=== PATIENT | female | born 1945 | race Caucasian/White ===

== ENCOUNTER 2017-01-06 14:36 | Outpatient (CLI) | payer MEDICARE, OTHER ==
--- NOTE | 2017-01-06 18:27 | RAD ---
TWO VIEWS CHEST: HISTORY: Bronchitis. FINDINGS: Stranding in the left lung base suggests atelectasis, although a streaky infiltrate cannot be exclude d. Lungs are otherwise clear. Heart and mediastinum are unremarkable. IMPRESSION: Streaky atelectasis and/or infiltrate in the left lung base. Recommend follow-up given the history o f bronchitis. POS: [facility]
== END 2017-01-06 14:37 | disposition home or self-care (01) ==
LOC: SCSRAD 14:36
PROVIDERS: ATTEND Family Medicine
DX: J40 Bronchitis, not specified as acute or chronic (principal); J98.11 Atelectasis
CPT/HCPCS: 71020

== ENCOUNTER 2017-01-16 10:07 | Outpatient (CLI) | payer OTHER | END 2017-01-16 10:08 | disposition home or self-care (01) | LOC: DTY/OP 10:07 | PROVIDERS: ATTEND Family Medicine | DX: E66.9 Obesity, unspecified (principal) | CPT/HCPCS: 97802 ==

== ENCOUNTER 2017-02-18 14:22 | Outpatient (CLI) | payer MEDICARE, OTHER ==
--- NOTE | 2017-02-18 15:37 | RAD ---
CHEST 2 VIEWS: Date: 02/18/17 HISTORY: Bronchitis. Follow-up. COMPARISON: 01/06/17. FINDINGS: Cardiac silhouette and pulmonary vasculature are unremarkable. Minimal linear scarring at the left ba se is stable. There is no confluent air space consolidation, pneumothorax, or pleural fluid apparent. IMPRESSION: Stable radiographic appearance of the chest. No active cardiopulmonary abnormalities are demonstrated . POS: [facility]
== END 2017-02-18 14:23 | disposition home or self-care (01) ==
LOC: SCSRAD 14:22
PROVIDERS: ATTEND Family Medicine
DX: R93.8 Abnormal findings on diagnostic imaging of other specified body structures (principal)
CPT/HCPCS: 71046

== ENCOUNTER 2017-03-04 05:44 | Inpatient (IN) | payer MEDICARE, OTHER ==
[2017-03-04] MEDS ORDERED: Dexamethasone 10 MG/ML VIAL ONE (06:11)
[2017-03-04] MEDS ORDERED: Magnesium Sulfate 2 GM/NS 0.9% 50 ML BAG ONE (06:11)
[2017-03-04] MEDS ORDERED: Albuterol Sulfate 2.5 mg/0.5 ml Neb ONE (06:11)
[2017-03-04 06:20] LABS: #Eosinphils 0.1 thou/uL (0.0-0.7); #Lymphocytes 0.4 thou/uL (1.20-3.40); #Monocytes 0.4 thou/uL (0.11-0.59); #Neutrophils 7.7 thou/uL (1.40-6.50); %Basophils 0.5 % (0.0-1.0); %Eosinophils 1.5 % (0.0-10.0); %Lymphocytes 4.6 % (21.0-51.0); %Monocytes 4.4 % (0.0-10.0); %Neutrophils 88.9 % (42.0-75.0); Hemoglobin 13.9 g/dL (12.0-16.0); Mean Corpuscular HGB CONC 33.1 g/dL (32.0-36.0); Mean Corpuscular Hemoglobin 28.9 pg (27.0-31.0); Mean Corpuscular Volume 87.6 fl (81.0-99.0); Mean Platelet Volume 6.7 fL (7.4-10.4); Platelet Count 215 thou/uL (130-400); RBC Distribution Width 10.9 % (11.5-14.5); White Blood Cell (WBC) Count 8.7 thou/uL (4.8-10.8)
[2017-03-04 06:31] LABS: INR-International Normal Ratio 1.1; PTT 29.7 SEC (22.9-36.1); Prothrombin Time 14.3 SEC (12.0-14.7)
[2017-03-04 06:32] LABS: D-Dimer Test 0.46 *mcg/mL (0.27-0.43)
[2017-03-04 06:33] LABS: ALT (SGPT) 55 U/L (8-55); AST (SGOT) 34 U/L (5-34); Albumin 4.1 g/dL (3.4-4.8); Alkaline Phosphatase 80 U/L (40-150); Anion Gap 14 mmol/L (10-20); BUN (Urea Nitrogen) 9 mg/dL (9.8-20.1); Bilirubin, Total 0.7 mg/dL (0.2-1.2); CK (CPK) 130 U/L (29-168); Calc. Creatinine Clearance 0 mL/min (70-130); Calcium 8.9 mg/dL (7.8-10.44); Carbon Dioxide 23 mmol/L (23-31); Chloride 104 mmol/L (98-107); Estimated GFR-MDRD 69; Globulin 3.2 g/dL (2.4-3.5); Glucose 250 mg/dL (80-115); Lipase 33 U/L (8-78); Potassium 3.5 mmol/L (3.5-5.1); Protein, Total 7.3 g/dL (6.0-8.3); Sodium 137 mmol/L (136-145)
[2017-03-04 06:35] LABS: CKMB 1.1 ng/mL (0-6.6); Troponin I 0.017 ng/mL (< 0.028)
[2017-03-04] MEDS ORDERED: Oseltamivir 75 MG CAP ONE (06:56)
[2017-03-04 07:40] LABS: Bilirubin Negative (Negative); Blood, Urine Negative (Negative); Clarity Clear (Clear); Glucose, Urine (Dipstick) 500 mg/dL (Negative); Leukocyte Small (Negative); Nitrite Negative (Negative); Protein, Urine (Dipstick) Negative (Neg-Trace); Urobilinogen 0.2 mg/dL (0.2-1.0)
[2017-03-04 07:41] LABS: Specific Gravity, Urine 1.019 (1.002-1.036)
[2017-03-04 07:48] LABS: Bacteria/HPF None Seen HPF (None Seen); RBC/HPF 0-3 HPF (0-3); Squamous Epithelial 0-3 HPF (0-3); WBC/HPF 0-3 HPF (0-3)
--- NOTE | 2017-03-04 08:07 | CT ---
CT ANGIOGRAM OF THE CHEST: Date: 03-04-17 Comparison: None. History: Intermittent episodes of wheezing for the last two months, evaluate for a pulmonary embolism . Technique: Serial axial CT imaging at 2 mm intervals from the thoracic inlet through the upper abdome n with IV contrast. Study is performed using a CT angiogram protocol which includes coronal and sagit librado 3D reformatted imaging. FINDINGS: No lymphadenopathy is noted in the chest. The imaged hepatic parenchyma is diffusely hypodense, evidence of steatosis. There is linear calcification along the lateral aspect of the right lobe of the liver, suggesting tamara cification on the basis of prior insult, which could include prior hemorrhage or prior infection. 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 No pleural, pericardial or mediastinal fluid is noted. There is adequate opacification of the pulmonary arterial vasculature, with no filling defect identif ied within the pulmonary arterial trunk or either main pulmonary artery. No evidence for pulmonary embolism is noted on either side. Tiny left upper lobe nodules are noted, measuring up to 4 mm on Image 16 and 6 mm on Image 17. There is a small nodule in the right upper lobe on Image 17 measuring in the 5 mm range. Tiny right lower l obe nodule on Image 76 measures in the 5 mm range. No acute osseous abnormality is seen. Age indeterminate mild superior endplate fractures are noted at T7 and T8. IMPRESSION: 1. No evidence for pulmonary embolism. 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 3. Subcentimeter bilateral pulmonary nodules. Follow up CT examination in six months is advised. Code T POS: [facility]
--- NOTE | 2017-03-04 08:12 | RAD ---
RADIOGRAPH CHEST 1 VIEW: HISTORY: 71-year-old with dyspnea. FINDINGS: There is hyperinflation of the lungs, consistent with COPD. There is no evidence of air space densit y, pneumothorax, or pulmonary edema. The lateral costophrenic angles are sharp. IMPRESSION: 1) No acute pulmonary findings. 2) Emphysema. cindy POS: [facility]
[2017-03-04 09:29] LABS: Troponin I Less than 0.010 ng/mL (< 0.028)
[2017-03-04 12:27] LABS: Troponin I Less than 0.010 ng/mL (< 0.028)
[2017-03-04 13:28] VITALS: BMI 35.7
[2017-03-04] MEDS ORDERED: Ondansetron ODT 4 MG TAB SL PRN (13:40)
[2017-03-04] MEDS ORDERED: Sodium Chloride 0.9% 1,000 ML IV SCH (13:40)
[2017-03-04] MEDS ORDERED: Ondansetron HCl/PF 4 MG/2 ML Vial IVP PRN ×2 (13:40→18:28)
[2017-03-04] MEDS ORDERED: Iopamidol 370 76% 100 ML VIAL ONE (13:55)
[2017-03-04] MEDS ORDERED: cloNIDine 0.1 MG TAB PO PRN (18:28)
[2017-03-04] MEDS ORDERED: Loratadine 10 MG TAB PO PRN (18:28)
[2017-03-04] MEDS ORDERED: Ondansetron ODT 4 MG TAB PO PRN (18:28)
[2017-03-04] MEDS ORDERED: hydrALAZINE 20 MG/ML VIAL SLOW IVP PRN (18:28)
[2017-03-04] MEDS: Sodium Chloride 0.9% 1,000 ML IV SCH ×2 (18:54→23:30)
[2017-03-04] MEDS: Mometasone/Formoterol 120 PUFF INHALER INH SCH (20:10)
[2017-03-04] MEDS: Famotidine 20 MG TAB PO SCH (20:47)
[2017-03-04] MEDS: Acetaminophen 500 MG TAB PO PRN (20:47)
[2017-03-04] MEDS: Oseltamivir 75 MG CAP PO SCH (20:47)
--- NOTE | 2017-03-04 22:02 | HP ---
DATE OF ADMISSION: 03/04/2017 PRIMARY CARE PROVIDER: Jonh Spencer MD CHIEF COMPLAINT: Cough and shortness of breath. HISTORY OF PRESENT ILLNESS: This is a 71-year-old female who presented to [facility] Emergency Department complaining of increased cough, shortness of breath, and general weakness over the last 48-72 hours. The patient with increased wheezing, worse at night, after apparently her was diagnosed with influenza. The patient states she has had some difficulty with respirato ry issues dating back to 2016, on several rounds of antibiotics and prednisone tapers. The patient states she was also placed on a metered dose inhaler and has had lingering cough since th is time. The patient denies any known chronic lung conditions, chronic tobacco use or exposure, or c hemical exposure. The patient denied any documented fever, but states she had severe shortness of br eath and worsening in the last 24 hours. The patient does state that she took her inhaler as well as recent course of steroids without relief of her symptoms. The patient denied any recent travel hist ory, but does state that several family members have respiratory symptoms similar to her presentation . The patient denied any recent travel history, prolonged sitting, lower extremity edema, or known c oronary disease. In the emergency room, the patient underwent general evaluation including chest radha ging showing no acute infiltrate. The patient received bronchodilator therapy with DuoNeb, as well a s Tamiflu, Levaquin, albuterol sulfate, magnesium sulfate, Decadron, and intravenous fluids. The pat ient was noted with influenza A positive nasal swab prompting respiratory isolation. PAST MEDICAL HISTORY: 1. Seasonal allergies. 2. Question of chronic bronchitis. 3. History of cataracts. PAST SURGICAL HISTORY: 1. Status post bilateral cataract removal. 2. Status post orthopedic surgery of the right knee. 3. Status post open reduction internal fixation of bilateral ankle fractures, 2016. CURRENT MEDICATIONS: Loratadine 5 mg p.o. daily. ALLERGIES: No known drug allergies. FAMILY HISTORY: No inheritable diseases per patient report. SOCIAL HISTORY: The patient is and resides in [place], [place]. No current alcohol, tobacco, or illicit drug use. REVIEW OF SYSTEMS: The following complete review of systems was negative, unless otherwise mentioned in the HPI or below: Constitutional: Weight loss or gain, ability to conduct usual activities. Skin: Rash, itching. Eyes: Double vision, pain. ENT/Mouth: Nose bleeding, neck stiffness, pain, tenderness. Cardiovascular: Palpitations, dyspnea on exertion, orthopnea. Respiratory: Shortness of breath, wheezing, cough, hemoptysis, fever or night sweats. Gastrointestinal: Poor appetite, abdominal pain, heartburn, nausea, vomiting, constipation, or diarr hea. Genitourinary: Urgency, frequency, dysuria, nocturia. Musculoskeletal: Pain, swelling. Neurologic/Psychiatric: Anxiety, depression. Allergy/Immunologic: Skin rash, bleeding tendency. Otherwise negative, except as stated per HPI. PHYSICAL EXAMINATION: VITAL SIGNS ON ADMISSION: Blood pressure 142/72, pulse 109, respiratory rate 16, temperature 97.7 de grees Fahrenheit, O2 saturation 95% on room air. GENERAL APPEARANCE: This is a 71-year-old female, alert and oriented x3, pleasant, convers ant, in no acute distress. HEENT: Pupils are equal, round, and reactive to light and accommodation. Extraocular muscles are in tact. No scleral icterus. No conjunctival injection. Nares patent. OP is clear. Teeth in good re pair. NECK: Supple. No cervical adenopathy. No thyromegaly. No carotid bruits. No JVD appreciated. Ce rvical spine with full active and passive range of motion. CHEST: Diffuse expiratory wheezing with diminished breath sounds bilaterally. CARDIOVASCULAR: S1, S2 without noted murmur. ABDOMEN: Obese, soft, nontender, nondistended. Bowel sounds are positive in all four quadrants. Th ere is no hepatosplenomegaly. No abdominal bruits. No rebound or guarding appreciated. EXTREMITIES: Warm and dry with fair turgor. No clubbing, cyanosis or asymmetric edema appreciated. Pulses palpable distally at the dorsalis pedis, posterior tibial, and popliteal arteries bilaterally . Capillary refill is less than 2 seconds. NEUROLOGIC: Cranial nerves II-XII are grossly intact. No focal or lateralizing signs appreciated. PERTINENT LABORATORY AND X-RAY FINDINGS: Basic metabolic profile within normal limits. Glucose 250, lactic acid level 1.5. LFTs within normal limits. Troponin I negative x3. BNP is 50. Albumin 4.1 , lipase 33. CBC within normal limits. D-dimer is 0.46. PT 14.3, INR 1.1, PTT 29.7. Urinalysis wa s positive for glucose and small leukocyte esterase. Influenza A antigen positive, 03/04/2017. Port able chest x-ray dated 03/04/2017 showed no acute cardiopulmonary process. Chronic changes concernin g for chronic obstructive pulmonary disease noted. CT angiogram of the chest dated 03/04/2017 showed no evidence for pulmonary embolus. Bilateral pulmonary nodules with recommended followup CT imaging in 6 months. EKG dated 03/04/2017 by my interpretation shows sinus tachycardia with heart rates in the 110s. Attenuated R-waves noted in the precordial leads. Normal axis. No acute ST-T wave change s appreciated. ASSESSMENT AND PLAN: 1. Influenza A positive. The patient will be admitted to the telemetry unit. We will continue Tania flu 75 mg p.o. b.i.d. Respiratory isolation. We will continue bronchodilator therapy with DuoNeb q. 4 hours. 2. Question of acute on chronic bronchitis secondary to influenza A positive. Initiate Levaquin 500 mg IV q.24 hours. Continue DuoNeb q.4 hours. Add Solu-Medrol 40 mg IV q.6 hours. Oxygen p.r.n. 3. Hyperglycemia. We will check A1c level in the a.m. No documented history or prior known history of diabetes mellitus. 4. Sinus tachycardia. Suspect secondary to bronchodilator therapy with beta agonist. We will william nue telemetry monitoring. Check TSH level in the a.m. 5. Prophylaxis. Sequential compression devices while in bed. Pepcid 20 mg p.o. b.i.d. Respiratory isolation. 6. Code status is full. Surrogate medical decision maker is patient's spouse.
[2017-03-05 05:34] LABS: Hemoglobin A1c 7.7 % (4.0-6.0)
[2017-03-05 05:42] LABS: Anion Gap 14 mmol/L (10-20); BUN (Urea Nitrogen) 13 mg/dL (9.8-20.1); Calc. Creatinine Clearance 104 mL/min (70-130); Calcium 8.8 mg/dL (7.8-10.44); Carbon Dioxide 18 mmol/L (23-31); Chloride 110 mmol/L (98-107); Estimated GFR-MDRD 75; Glucose 325 mg/dL (80-115); Potassium 3.7 mmol/L (3.5-5.1); Sodium 138 mmol/L (136-145)
[2017-03-05] MEDS: Acetaminophen 500 MG TAB PO PRN ×2 (05:50→22:34)
[2017-03-05] MEDS: Mometasone/Formoterol 120 PUFF INHALER INH SCH ×2 (07:09→19:21)
[2017-03-05 07:38] LABS: Hemoglobin 12.4 g/dL (12.0-16.0); Mean Corpuscular HGB CONC 32.8 g/dL (32.0-36.0); Mean Corpuscular Hemoglobin 30.4 pg (27.0-31.0); Mean Corpuscular Volume 92.7 fl (81.0-99.0); Mean Platelet Volume 7.7 fL (7.4-10.4); Platelet Count 209 thou/uL (130-400); RBC Distribution Width 11.9 % (11.5-14.5); Red Blood Cell (RBC) Count 4.07 mill/uL (4.20-5.40); White Blood Cell (WBC) Count 8.1 thou/uL (4.8-10.8)
[2017-03-05 08:13] LABS: Band 17 % (5-11); Lymphocytes 3 % (21-51); MDiff Complete? YES; Monocytes 2 % (0-10); Neutrophil 78 % (42-75); RBC Morphology Normal
[2017-03-05] MEDS: Sodium Chloride 0.9% 1,000 ML IV SCH ×2 (09:07→14:44)
[2017-03-05] MEDS: Oseltamivir 75 MG CAP PO SCH ×2 (09:08→22:16)
[2017-03-05] MEDS: Famotidine 20 MG TAB PO SCH ×2 (09:08→22:16)
--- NOTE | 2017-03-05 13:33 | PDOC.PN ---
- Subjective Encounter Start Date: 03/05/17 Encounter Start Time: 13:30 Subjective: f/u for acute bronchitis and Influenza A + on Tamiflu and Levaquin. Overall -: feeling better. Less SOB. + dry coughing. No fever or chills. - Objective Resuscitation Status: Resuscitation Status FULL:Full Resuscitation MAR Reviewed: Yes Vital Signs & Weight: Vital Signs (12 hours) Temp Pulse Resp BP Pulse Ox 03/05/17 12:00 97.8 F 115 H 16 143/63 H 95 03/05/17 10:48 110 H 16 03/05/17 09:00 97.9 F 114 H 18 130/61 94 L 03/05/17 07:09 90 16 03/05/17 04:00 97.9 F 115 H 20 137/65 96 03/05/17 02:27 105 H 18 94 L Weight Weight 207 lb 5 oz I&O: 03/04/17 03/05/17 03/06/17 06:59 06:59 06:59 Intake Total 3520 Output Total 2000 Balance 1520 Result Diagrams: 03/05/17 05:12 03/05/17 05:12 Additional Labs: Microbiology 03/04/17 06:30 Nasal swab Influenza Types A,B Direct EIA - Final 03/04/17 06:33 Venous blood - Right Arm Blood Culture - Preliminary Specimen has been received and culture in progress. No Growth to date. 03/04/17 06:19 Venous blood - Left Arm Blood Culture - Preliminary Specimen has been received and culture in progress. No Growth to date. Laboratory Tests 03/05/17 03/05/17 05:12 05:12 Hemoglobin A1c 7.7 H TSH 3rd Generation 0.2578 L EKG Reviewed by me: Yes (Tele - sinus tachycardia in 100's) Phys Exam - Physical Examination Constitutional: NAD HEENT: PERRLA, oral pharynx no lesions Neck: no JVD, supple scattered coarse sounds Respiratory: wheezing present tachycardic Gastrointestinal: soft, non-tender, no distention, positive bowel sounds Musculoskeletal: no edema, pulses present Neurological: normal sensation, moves all 4 limbs Psychiatric: A&O x 3 Skin: normal turgor, cap refill <2 seconds Dx/Plan (1) Influenza A Code(s): J10.1 - FLU DUE TO OTH IDENT INFLUENZA VIRUS W OTH RESP MANIFEST Status: Acute Comment: Continue Tamiflu 75mg BID (2) Acute bronchitis Code(s): J20.9 - ACUTE BRONCHITIS, UNSPECIFIED Status: Acute Comment: Continue Solumedrol, Levaquin and Duonebs (3) Dehydration Code(s): E86.0 - DEHYDRATION Status: Acute Comment: Resolved (4) Sinus tachycardia Code(s): R00.0 - TACHYCARDIA, UNSPECIFIED Status: Acute Comment: Persistent , likely exacerbated by beta-agonist (5) Diabetes mellitus type II, uncontrolled Code(s): E11.65 - TYPE 2 DIABETES MELLITUS WITH HYPERGLYCEMIA Status: Chronic Comment: ADA, recommend aggressive dietary measures, exercise and outpt monitoring, may need medical therapy to augment lifestyle changes - Plan plan discussed w/ family, continue antibiotics, respiratory therapy, out of bed/ ambulate, DVT proph w/SCDs Stable overall -: Continue Tamiflu 75mg BID -: Continue Levaquin 500mg daily -: Decrease Solumedrol 20mg IV q6h -: AM lab: FT4 * Likely home in 24h
[2017-03-05] MEDS: Zolpidem Tartrate 5 MG TAB PO PRN (22:34)
[2017-03-05] MEDS: Benzonatate 100 MG CAP PO PRN (22:37)
[2017-03-06] MEDS: Mometasone/Formoterol 120 PUFF INHALER INH SCH ×2 (08:42→19:00)
[2017-03-06] MEDS: Oseltamivir 75 MG CAP PO SCH ×2 (09:20→21:25)
[2017-03-06] MEDS: Sodium Chloride 0.9% 1,000 ML IV SCH (09:21)
[2017-03-06] MEDS: Famotidine 20 MG TAB PO SCH ×2 (09:21→21:24)
--- NOTE | 2017-03-06 11:58 | PDOC.PN ---
- Subjective Encounter Start Date: 03/06/17 Encounter Start Time: 11:40 Subjective: f/u for Influenza A+ and bronchitis with slow clinical improvement. -: Still feels weak with coughing. No fever. Ambulating in room. - Objective Resuscitation Status: Resuscitation Status FULL:Full Resuscitation MAR Reviewed: Yes Vital Signs & Weight: Vital Signs (12 hours) Temp Pulse Resp BP Pulse Ox 03/06/17 08:42 108 H 16 03/06/17 08:00 96.7 F L 108 H 16 169/77 H 99 03/06/17 07:41 86 16 03/06/17 04:00 98.4 F 101 H 18 138/64 95 03/06/17 02:52 958 H 03/06/17 01:53 101 H 18 94 L 03/06/17 00:00 98.0 F 103 H 20 148/69 H 95 Weight Weight 207 lb 5 oz I&O: 03/05/17 03/06/17 03/07/17 06:59 06:59 06:59 Intake Total 3520 720 240 Output Total 2000 1100 Balance 1520 -380 240 Result Diagrams: 03/05/17 05:12 03/05/17 05:12 EKG Reviewed by me: Yes (Tele - Sinus tach in low 100's) Phys Exam - Physical Examination Constitutional: NAD HEENT: PERRLA, oral pharynx no lesions Neck: no JVD, supple diminished in bases, few scattered coarse sounds tachycardia Gastrointestinal: soft, non-tender, no distention, positive bowel sounds Musculoskeletal: no edema, pulses present Neurological: normal sensation, moves all 4 limbs Psychiatric: A&O x 3 Skin: normal turgor, cap refill <2 seconds Dx/Plan (1) Influenza A Code(s): J10.1 - FLU DUE TO OTH IDENT INFLUENZA VIRUS W OTH RESP MANIFEST Status: Acute Comment: Continue Tamiflu 75mg BID to complete a 5-day course (2) Acute bronchitis Code(s): J20.9 - ACUTE BRONCHITIS, UNSPECIFIED Status: Acute Comment: Continue Solumedrol, Levaquin and Duonebs (3) Dehydration Code(s): E86.0 - DEHYDRATION Status: Acute Comment: Resolved, d/c IVF (4) Sinus tachycardia Code(s): R00.0 - TACHYCARDIA, UNSPECIFIED Status: Acute Comment: Persistent , likely exacerbated by beta-agonist (5) Diabetes mellitus type II, uncontrolled Code(s): E11.65 - TYPE 2 DIABETES MELLITUS WITH HYPERGLYCEMIA Status: Chronic Comment: ADA, recommend aggressive dietary measures, exercise and outpt monitoring, may need medical therapy to augment lifestyle changes - Plan continue antibiotics, respiratory therapy, out of bed/ambulate, DVT proph w/SCDs Stable overall -: Decrease Solumedrol 20mg IV q12h -: Change Levaquin 500mg po daily -: Saline Lock IVF -: OOB/ambulate * Home in am
[2017-03-06] MEDS: Benzonatate 100 MG CAP PO PRN (12:37)
[2017-03-06] MEDS: Zolpidem Tartrate 5 MG TAB PO PRN ×2 (21:25→21:38)
[2017-03-06] MEDS: Acetaminophen 500 MG TAB PO PRN (21:25)
[2017-03-07] MEDS: Benzonatate 100 MG CAP PO PRN (06:36)
[2017-03-07] MEDS: Mometasone/Formoterol 120 PUFF INHALER INH SCH (09:05)
[2017-03-07] MEDS: Famotidine 20 MG TAB PO SCH (10:26)
[2017-03-07] MEDS: Oseltamivir 75 MG CAP PO SCH (10:26)
[2017-03-07] MEDS: Acetaminophen 500 MG TAB PO PRN (10:29)
[2017-03-07 12:38] VITALS: BP 152/86; TEMP 98
--- NOTE | 2017-03-07 16:32 | DIS ---
DATE OF ADMISSION: 03/04/2017 DATE OF DISCHARGE: 03/07/2017 DISCHARGE DIAGNOSES: 1. Influenza A. 2. Acute bronchitis secondarily to #1. 3. Diabetes mellitus type 2, diet managed. 4. Dehydration, resolved. 5. Sinus tachycardia, improved. 6. Elevated blood pressure. CONSULTATIONS: None. PERTINENT LAB AND X-RAY FINDINGS: Hemoglobin A1c 7.7. LFTs within normal limits. Troponin I negati ve x3. BNP 50, TSH 0.26, free T4 0.87. CBC within normal limits. Blood cultures x2 dated 8 showed no growth at 48 hours. Influenza A antigen positive 03/04/2017. Portable chest x-ray dated 03/04/2017 showed no acute cardiopulmonary process. Chronic changes consistent with COPD. CT angio gram of the chest dated 03/04/2017 showed no evidence for pulmonary embolus. Bilateral subcentimeter pulmonary nodules with follow up CT imaging recommended in 6 months. HOSPITAL COURSE: The patient was admitted to the telemetry unit after initially presenting with incr eased cough, congestion, and shortness of breath. The patient underwent extensive evaluation includi ng chest imaging to include plain radiographs and CT imaging showing no acute infiltrates. The patie nt was noted with influenza A positive and treated with Tamiflu, Solu-Medrol, and empiric Levaquin. The patient was slow to clinically improve with supportive measures; however, was titrated off oxygen supplementation, maintaining O2 saturations in the mid 90% range on room air. The patient continues to clinically improve with respiratory symptoms and stabilized by the time of discharge. The patien t was noted with elevated glucose values with hemoglobin A1c of 7.7. Current recommendations are for diet management as well as exercise regimen. The patient may benefit from low dose oral hypoglycemi c after discussion with her primary care provider. The patient was also noted with mild elevated blo od pressures with recommendations for serial monitoring after discharge. Overall, the patient did re main clinically stable since the hospital course and tolerating regular oral intake, ambulating witho ut assistance or difficulty and ready for discharge on 03/07/2017. DISCHARGE MEDICATIONS: 1. Levaquin 500 mg 1 tab p.o. daily x5 days. 2. Loratadine 5 mg p.o. daily. 3. Dulera 200/5 mcg 2 puffs inhaled b.i.d. 4. Tamiflu 75 mg p.o. b.i.d. x2 days. 5. Prednisone 10 mg dose pack. 6. Ambien 5 mg p.o. at bedtime p.r.n. FOLLOWUP: The patient will follow up with primary care provider, Dr. Jonh Spencer within 7 day s of discharge. CONDITION ON DISCHARGE: Stable. ACTIVITY: ad mayo. DIET: ADA and heart healthy. CODE STATUS: FULL. SPECIAL INSTRUCTIONS: Recommend repeat CT imaging of the chest in 6 months. DISPOSITION: Home on 03/07/2017. Total time preparing in coordinating discharge 37 minutes.
== END 2017-03-07 15:30 | disposition home or self-care (01) | DRG 194 ==
LOC: SCSER 05:44 → 2NO 07:15
PROVIDERS: ADMIT Family Medicine; ATTEND Family Medicine
DX: J10.1 Influenza due to other identified influenza virus with other respiratory manifestations (principal); J44.0 Chronic obstructive pulmonary disease with (acute) lower respiratory infection; E11.65 Type 2 diabetes mellitus with hyperglycemia; E86.0 Dehydration; J30.2 Other seasonal allergic rhinitis; J20.9 Acute bronchitis, unspecified; R00.0 Tachycardia, unspecified; R03.0 Elevated blood-pressure reading, without diagnosis of hypertension; R06.03 Acute respiratory distress
CPT/HCPCS: 36415; 71045; 71275; 80048; 80053; 81003; 81015; 82553; 83036; 83605; 83690; 83880; 84439; 84443; 84484; 85007; 85025; 85027; 85379; 85610; 85730; 87040; 93005; 94640; 94664; 96365; 96366; 96367; 96375; A4216; J1100; J1956; J2920; J3475; J7611; J7620

== ENCOUNTER 2018-06-02 12:35 | Outpatient (CLI) | payer MEDICARE, OTHER ==
--- NOTE | 2018-06-02 13:26 | ULT ---
Pelvic ultrasound: Transabdominal exam performed. Endovaginal exam also performed. INDICATIONS: Pelvic pain. Uterus is unremarkable in size and appearance. Endometrial stripe appears normal measuring 2 to 3 mm. Both ovaries are identified and appear unremarkable. Color Doppler with spectral analysis demonstrates blood flow to both ovaries. No evidence of free fluid. IMPRESSION: Unremarkable pelvic ultrasound.
== END 2018-06-02 12:36 | disposition home or self-care (01) ==
LOC: SCSULT 12:35
PROVIDERS: ATTEND Family Medicine
DX: R10.30 Lower abdominal pain, unspecified (principal)
CPT/HCPCS: 76856

== ENCOUNTER 2018-10-21 11:02 | Outpatient (CLI) | payer MEDICARE, OTHER ==
--- NOTE | 2018-10-21 11:26 | MMO ---
Bilateral MAMMO Bilat Screen [facility]. CLINICAL HISTORY: Patient is 72 years old and is seen for screening. The patient has no family history of breast cancer. The patient has no personal history of cancer. VIEWS: The views performed were: bilateral craniocaudal with tomosynthesis and bilateral mediolateral oblique with tomosynthesis. FILMS COMPARED: The present examination has been compared to a prior imaging study performed at [facility] on 05/16/2016. MAMMOGRAM FINDINGS: There are scattered fibroglandular densities. There are vascular calcifications seen in both breasts. There are no suspicious masses, suspicious calcifications, or new areas of architectural distortion. IMPRESSION: A ROUTINE FOLLOW-UP MAMMOGRAM IN 1 YEAR IS RECOMMENDED. THE RESULTS OF THIS EXAM WERE SENT TO THE PATIENT. ACR BI-RADS Category 2 - Benign finding MAMMOGRAPHY NOTE: 1. A negative mammogram report should not delay a biopsy if a dominant of clinically suspicious mass is present. 2. Approximately 10% to 15% of breast cancers are not detected by mammography. 3. Adenosis and dense breasts may obscure an underlying neoplasm. Reported by: DAWN NOE MD Electonically Signed: [id number]
== END 2018-10-21 11:03 | disposition home or self-care (01) ==
LOC: BICMAMMO 11:02
PROVIDERS: ATTEND Family Medicine
DX: Z12.31 Encounter for screening mammogram for malignant neoplasm of breast (principal)
CPT/HCPCS: 77063; 77067

== ENCOUNTER 2020-02-07 10:37 | Outpatient (CLI) | payer MEDICARE, OTHER ==
--- NOTE | 2020-02-07 11:09 | MMO ---
Bilateral MAMMO Bilat Screen [facility]. CLINICAL HISTORY: Patient is 74 years old and is seen for screening. The patient has no family history of breast cancer. The patient has no personal history of cancer. VIEWS: The views performed were: bilateral craniocaudal with tomosynthesis and bilateral mediolateral oblique with tomosynthesis. FILMS COMPARED: The present examination has been compared to prior imaging studies performed at [facility] on 05/16/2016 and 10/21/2018. This study has been interpreted with the assistance of computer-aided detection. MAMMOGRAM FINDINGS: There are scattered fibroglandular densities. Benign calcifications are noted bilaterally. There are no suspicious masses, suspicious calcifications, or new areas of architectural distortion. IMPRESSION: THERE IS NO MAMMOGRAPHIC EVIDENCE OF MALIGNANCY. A ROUTINE FOLLOW-UP MAMMOGRAM IN 1 YEAR IS RECOMMENDED. THE RESULTS OF THIS EXAM WERE SENT TO THE PATIENT. ACR BI-RADS Category 2 - Benign finding MAMMOGRAPHY NOTE: 1. A negative mammogram report should not delay a biopsy if a dominant of clinically suspicious mass is present. 2. Approximately 10% to 15% of breast cancers are not detected by mammography. 3. Adenosis and dense breasts may obscure an underlying neoplasm. Reported by: EDY MISTRY MD Electonically Signed: [id number]
== END 2020-02-07 10:38 | disposition home or self-care (01) ==
LOC: BICMAMMO 10:37
PROVIDERS: ATTEND Family Medicine
DX: Z12.31 Encounter for screening mammogram for malignant neoplasm of breast (principal)
CPT/HCPCS: 77063; 77067

== ENCOUNTER 2020-05-18 09:53 | Outpatient (CLI) | payer MEDICARE | END 2020-05-18 09:54 | disposition home or self-care (01) | LOC: BICMAMMO 09:53 | PROVIDERS: ATTEND Family Medicine | DX: Z13.820 Encounter for screening for osteoporosis (principal); E11.9 Type 2 diabetes mellitus without complications; M85.89 Other specified disorders of bone density and structure, multiple sites | CPT/HCPCS: 77080 ==

== ENCOUNTER 2021-07-24 12:05 | Outpatient (CLI) | payer MEDICARE | END 2021-07-24 12:06 | disposition home or self-care (01) | LOC: DTY/OP 12:05 | PROVIDERS: ATTEND Family Medicine | DX: E11.9 Type 2 diabetes mellitus without complications (principal); Z71.3 Dietary counseling and surveillance | CPT/HCPCS: 97802 ==

== ENCOUNTER 2021-10-31 11:13 | Outpatient (CLI) | payer MEDICARE, OTHER | END 2021-10-31 11:14 | disposition home or self-care (01) | LOC: SCSRAD 11:13 | PROVIDERS: ATTEND Family Medicine | DX: M25.562 Pain in left knee (principal); M17.12 Unilateral primary osteoarthritis, left knee ==

== ENCOUNTER 2021-12-21 13:44 | Outpatient (CLI) | payer MEDICARE, OTHER | END 2021-12-21 13:45 | disposition home or self-care (01) | LOC: BICMAMMO 13:44 | PROVIDERS: ATTEND Family Medicine | DX: Z12.31 Encounter for screening mammogram for malignant neoplasm of breast (principal) | CPT/HCPCS: 77063; 77067 ==

== ENCOUNTER 2022-03-27 11:16 | Outpatient (CLI) | payer MEDICARE, OTHER ==
[2022-03-27 13:12] LABS: Bilirubin Neg (Negative); Blood, Urine Negative (Negative); Clarity Cloudy (Clear); Glucose, Urine (Dipstick) Normal (Negative); Ketone, Urine Negative (Negative); Leukocyte 100 (Negative); Nitrite Positive (Negative); Protein, Urine (Dipstick) Negative (Neg-Trace); Specific Gravity, Urine 1.015 (1.005-1.030); Urobilinogen Normal mg/dL (Less than 2)
[2022-03-27 13:19] LABS: #Eosinphils 0.2 10x3/uL (0.0-0.5); #Monocytes 0.4 10x3/uL (0.0-1.1); #Neutrophils 3.5 10x3/uL (1.5-8.4); %Basophils 0.5 % (0.0-2.0); %Eosinophils 3.1 % (0.0-6.0); %Lymphocytes 34.6 % (18.0-47.0); %Monocytes 6.3 % (0.0-10.0); %Neutrophils 55.2 % (40.0-75.0); Mean Corpuscular HGB CONC 32.8 g/dL (32.0-36.0); Mean Corpuscular Hemoglobin 29.7 pg (27.0-33.0); Mean Corpuscular Volume 90.5 fl (81.6-98.3); Mean Platelet Volume 10.5 fl (7.4-10.4); Platelet Count 268 10x3/uL (150-450); RBC Distribution Width 12.6 % (11.5-14.5); Red Blood Cell (RBC) Count 4.72 10x6/uL (3.90-5.03); White Blood Cell (WBC) Count 6.4 10x3/uL (3.5-10.5)
[2022-03-27 13:20] LABS: Prothrombin Time 10.4 sec (9.5-12.1)
[2022-03-27 13:23] LABS: Anion Gap 13 mmol/L (10-20); BUN (Urea Nitrogen) 10 mg/dL (9.8-20.1); Calc. Creatinine Clearance 0 mL/min (70-130); Calcium 9.6 mg/dL (7.8-10.44); Carbon Dioxide 26 mmol/L (23-31); Chloride 105 mmol/L (98-107); Estimated GFR 71; Glucose 132 mg/dL (83-110); Potassium 4.2 mmol/L (3.5-5.1); Sodium 140 mmol/L (136-145)
== END 2022-03-27 11:17 | disposition home or self-care (01) ==
LOC: LABBT 11:16
PROVIDERS: ATTEND Orthopaedic Surgery
DX: Z01.818 Encounter for other preprocedural examination (principal); M17.12 Unilateral primary osteoarthritis, left knee
CPT/HCPCS: 71046; 80048; 81003; 85025; 85610; 86850; 86900; 86901; 87081; 93005; 93010

== ENCOUNTER 2022-04-01 05:38 | Inpatient (IN) | payer MEDICARE, OTHER ==
[2022-03-27 13:12] LABS: Bilirubin Neg (Negative); Blood, Urine Negative (Negative); Clarity Cloudy (Clear); Glucose, Urine (Dipstick) Normal (Negative); Ketone, Urine Negative (Negative); Leukocyte 100 (Negative); Nitrite Positive (Negative); Protein, Urine (Dipstick) Negative (Neg-Trace); Specific Gravity, Urine 1.015 (1.005-1.030); Urobilinogen Normal mg/dL (Less than 2)
[2022-03-27 13:19] LABS: #Eosinphils 0.2 10x3/uL (0.0-0.5); #Monocytes 0.4 10x3/uL (0.0-1.1); #Neutrophils 3.5 10x3/uL (1.5-8.4); %Basophils 0.5 % (0.0-2.0); %Eosinophils 3.1 % (0.0-6.0); %Lymphocytes 34.6 % (18.0-47.0); %Monocytes 6.3 % (0.0-10.0); %Neutrophils 55.2 % (40.0-75.0); Mean Corpuscular HGB CONC 32.8 g/dL (32.0-36.0); Mean Corpuscular Hemoglobin 29.7 pg (27.0-33.0); Mean Corpuscular Volume 90.5 fl (81.6-98.3); Mean Platelet Volume 10.5 fl (7.4-10.4); Platelet Count 268 10x3/uL (150-450); RBC Distribution Width 12.6 % (11.5-14.5); Red Blood Cell (RBC) Count 4.72 10x6/uL (3.90-5.03); White Blood Cell (WBC) Count 6.4 10x3/uL (3.5-10.5)
[2022-03-27 13:20] LABS: Prothrombin Time 10.4 sec (9.5-12.1)
[2022-03-27 13:23] LABS: Anion Gap 13 mmol/L (10-20); BUN (Urea Nitrogen) 10 mg/dL (9.8-20.1); Calc. Creatinine Clearance 0 mL/min (70-130); Calcium 9.6 mg/dL (7.8-10.44); Carbon Dioxide 26 mmol/L (23-31); Chloride 105 mmol/L (98-107); Estimated GFR 71; Glucose 132 mg/dL (83-110); Potassium 4.2 mmol/L (3.5-5.1); Sodium 140 mmol/L (136-145)
[2022-03-29 11:51] VITALS: BMI 32.5
[2022-04-01] MEDS ORDERED: Fentanyl 250 MCG/5 ML VIAL ONE (05:53)
[2022-04-01] MEDS ORDERED: Dexmedetomidine 200 MCG/2 ML VIAL ONE (05:53)
[2022-04-01] MEDS ORDERED: CEFAZOLIN 2 GM VIAL ONE (06:07)
[2022-04-01] MEDS ORDERED: Tranexamic Acid 1,000 MG/10 ML VIAL ONE (06:07)
[2022-04-01] MEDS ORDERED: Vancomycin (BATCH) 1.5 GRAM/300 ML BAG ONE (06:07)
[2022-04-01] MEDS ORDERED: Sodium Chloride 0.9% 100 ML ONE (06:07)
[2022-04-01] MEDS ORDERED: Midazolam HCl 2 mg/2 ml Vial ONE (06:40)
[2022-04-01] MEDS ORDERED: Ketorolac Tromethamine 30 MG/ML VIAL ONE (06:45)
[2022-04-01] MEDS ORDERED: Ondansetron PF 4 MG/2 ML Vial ONE (06:45)
[2022-04-01] MEDS ORDERED: Dexamethasone 20 MG/5 ML VIAL ONE (06:45)
[2022-04-01] MEDS ORDERED: ePHEDrine 50 MG/ML VIAL ONE (06:45)
[2022-04-01] MEDS ORDERED: Bupivacaine HCl 0.5%/Epinephrine 1:200,000/PF 30 ml Vial ONE (06:45)
[2022-04-01] MEDS ORDERED: PROPOFOL 200 MG/20 ML VIAL ONE (06:45)
[2022-04-01] MEDS ORDERED: Bupivacaine 0.25% HCL 30 ML VIAL ONE (06:48)
[2022-04-01 07:24] LABS: SARS-CoV-2 NAA Rapid Test Not Detected (NotDetected)
[2022-04-01] MEDS ORDERED: Bupivacaine PF 0.5% 30 ML VIAL ONE (08:16)
[2022-04-01] MEDS ORDERED: Fentanyl 100 MCG/2 ML VIAL IV PRN (08:57)
[2022-04-01] MEDS ORDERED: Promethazine HCl 25 MG/ML VIAL IM PRN ×2 (08:58→09:00)
[2022-04-01] MEDS ORDERED: Acetaminophen 325 MG TAB PO PRN (08:58)
[2022-04-01] MEDS ORDERED: diphenhydrAMINE 25 MG CAP PO PRN (08:58)
[2022-04-01] MEDS ORDERED: Fentanyl 100 MCG/2 ML VIAL SLOW IVP PRN (08:58)
[2022-04-01] MEDS ORDERED: Zolpidem Tartrate 5 MG TAB PO PRN ×3 (08:58→09:02)
[2022-04-01] MEDS ORDERED: Ondansetron PF 4 MG/2 ML Vial IVP PRN ×2 (08:58→09:00)
[2022-04-01] MEDS ORDERED: Tranexamic Acid 1,000 MG in Sodium Chloride 0.9% 100 ML IVPB SCH (09:00)
[2022-04-01] MEDS ORDERED: Ropivacaine 0.2% 550 ML 550 ML NERVE BLCK SCH (09:00)
[2022-04-01] MEDS ORDERED: traMADol HCl 50 MG TAB PO PRN ×2 (09:00)
[2022-04-01] MEDS ORDERED: Loratadine 5 MG/5 ML UDCUP PO PRN (09:02)
[2022-04-01] MEDS ORDERED: Fentanyl 100 MCG/2 ML VIAL ONE (09:06)
[2022-04-01] MEDS ORDERED: Non-Formulary Item 1 EACH (Semaglutide [Ozempic] 0.25 MG/0.2 ML Pen.Injctr) SQ SCH (09:15)
[2022-04-01] MEDS: Ketorolac Tromethamine 30 MG/ML VIAL IVP SCH ×3 (11:41→23:23)
[2022-04-01] MEDS: Sodium Chloride 0.9% 1,000 ML IV SCH ×2 (11:42→17:15)
[2022-04-01] MEDS: CEFAZOLIN 2 GM in Sodium Chloride 0.9% 100 ML IVPB SCH ×2 (14:03→23:22)
[2022-04-01] MEDS: HYDROcodone/Acetaminophen 10/325 mg Tablet PO PRN ×2 (14:04→23:24)
[2022-04-01] MEDS ORDERED: Dextrose 5% in Water 1,000 ML IV PRN (17:49)
[2022-04-01] MEDS ORDERED: Dextrose 50% Abboject 50 ML SYRINGE SLOW IVP PRN (17:49)
[2022-04-01] MEDS ORDERED: HumaLOG 300 UNITS/3 ML VIAL SC PRN (17:49)
[2022-04-01] MEDS ORDERED: Vancomycin HCl 1.5 GM in Sodium Chloride 0.9% 250 ML 300 ML IVPB SCH (18:00)
[2022-04-01] MEDS ORDERED: Vancomycin 1.5 GRAM/300 ML BAG 1.5 GM in Premix Bag 1 BAG IVPB SCH (18:00)
[2022-04-01 18:45] LABS: #Lymphocytes 0.9 thou/uL (1.20-3.40); #Monocytes 0.1 thou/uL (0.11-0.59); #Neutrophils 6.8 thou/uL (1.40-6.50); %Basophils 0.1 % (0.0-1.0); %Eosinophils 0.2 % (0.0-10.0); %Lymphocytes 11.5 % (21.0-51.0); %Monocytes 1.5 % (0.0-10.0); %Neutrophils 86.6 % (42.0-75.0); Hemoglobin 13.4 g/dL (12.0-16.0); Mean Corpuscular HGB CONC 33.4 g/dL (32.0-36.0); Mean Corpuscular Hemoglobin 31.1 pg (27.0-31.0); Mean Platelet Volume 7.9 fL (7.4-10.4); Platelet Count 224 10x3/uL (130-400); RBC Distribution Width 11.7 % (11.5-14.5); Red Blood Cell (RBC) Count 4.33 mill/uL (4.20-5.40); White Blood Cell (WBC) Count 7.8 10x3/uL (4.8-10.8)
[2022-04-01 18:57] LABS: Anion Gap 14 mmol/L (10-20); BUN (Urea Nitrogen) 10 mg/dL (9.8-20.1); Calc. Creatinine Clearance 83 mL/min (70-130); Calcium 8.8 mg/dL (7.8-10.44); Carbon Dioxide 23 mmol/L (23-31); Chloride 103 mmol/L (98-107); Estimated GFR 76; Glucose 177 mg/dL (83-110); Potassium 4.2 mmol/L (3.5-5.1); Sodium 136 mmol/L (136-145)
[2022-04-01 19:35] LABS: Hemoglobin A1c 6.1 % (4.0-6.0)
[2022-04-01] MEDS: Aspirin 81 mg Enteric Coated Tablet PO SCH (20:35)
[2022-04-01] MEDS: Ferrous Gluconate 324 MG TAB PO SCH (20:36)
[2022-04-01] MEDS: Rosuvastatin 10 MG TAB PO SCH (20:37)
[2022-04-01] MEDS: Senokot S 8.6-50 MG TAB PO SCH (20:37)
[2022-04-01] MEDS: Mometasone 200 MCG/Formoterol 5 MCG 120 PUFF INHALER INH SCH (23:02)
[2022-04-02] MEDS: Sodium Chloride 0.9% 1,000 ML IV SCH ×2 (02:34→13:39)
[2022-04-02] MEDS: Ketorolac Tromethamine 30 MG/ML VIAL IVP SCH ×3 (05:50→17:20)
[2022-04-02] MEDS: HYDROcodone/Acetaminophen 10/325 mg Tablet PO PRN ×3 (05:52→22:12)
[2022-04-02] MEDS: HumaLOG 300 UNITS/3 ML VIAL SC PRN ×2 (05:57→12:48)
[2022-04-02 06:55] LABS: Mean Corpuscular Hemoglobin 31.7 pg (27.0-31.0); Mean Corpuscular Volume 93.4 fl (78.0-98.0); Mean Platelet Volume 7.9 fL (7.4-10.4); Platelet Count 223 10x3/uL (130-400); RBC Distribution Width 11.6 % (11.5-14.5); Red Blood Cell (RBC) Count 3.79 mill/uL (4.20-5.40); White Blood Cell (WBC) Count 9.8 10x3/uL (4.8-10.8)
[2022-04-02] MEDS: Mometasone 200 MCG/Formoterol 5 MCG 120 PUFF INHALER INH SCH ×2 (07:36→19:06)
[2022-04-02] MEDS: Ferrous Gluconate 324 MG TAB PO SCH ×2 (08:01→20:16)
[2022-04-02] MEDS: Lisinopril 2.5 MG TAB PO SCH (08:01)
[2022-04-02] MEDS: Multivitamin W/ Minerals 1 TAB PO SCH (08:01)
[2022-04-02] MEDS: Senokot S 8.6-50 MG TAB PO SCH ×2 (08:01→20:16)
[2022-04-02] MEDS: Aspirin 81 mg Enteric Coated Tablet PO SCH ×2 (08:01→20:16)
[2022-04-02] MEDS: Alogliptin 25 MG TAB PO SCH (08:02)
[2022-04-02] MEDS: Rosuvastatin 10 MG TAB PO SCH (20:16)
[2022-04-03] MEDS: Ketorolac Tromethamine 30 MG/ML VIAL IVP SCH ×2 (00:46→06:22)
[2022-04-03] MEDS: Sodium Chloride 0.9% 1,000 ML IV SCH (01:31)
[2022-04-03 07:23] LABS: Hemoglobin 11.4 g/dL (12.0-16.0); Mean Corpuscular HGB CONC 34.5 g/dL (32.0-36.0); Mean Corpuscular Hemoglobin 32.2 pg (27.0-31.0); Mean Corpuscular Volume 93.3 fl (78.0-98.0); Platelet Count 209 10x3/uL (130-400); RBC Distribution Width 11.7 % (11.5-14.5); Red Blood Cell (RBC) Count 3.55 mill/uL (4.20-5.40); White Blood Cell (WBC) Count 7.6 10x3/uL (4.8-10.8)
[2022-04-03] MEDS: Mometasone 200 MCG/Formoterol 5 MCG 120 PUFF INHALER INH SCH (07:30)
[2022-04-03 08:11] VITALS: TEMP 97.8
[2022-04-03] MEDS: Alogliptin 25 MG TAB PO SCH (09:25)
[2022-04-03] MEDS: Aspirin 81 mg Enteric Coated Tablet PO SCH (09:25)
[2022-04-03] MEDS: Ferrous Gluconate 324 MG TAB PO SCH (09:25)
[2022-04-03] MEDS: Multivitamin W/ Minerals 1 TAB PO SCH (09:26)
[2022-04-03] MEDS: Lisinopril 2.5 MG TAB PO SCH (09:26)
[2022-04-03] MEDS: Senokot S 8.6-50 MG TAB PO SCH (09:26)
[2022-04-03 12:18] VITALS: BP 143/83
[2022-04-03] MEDS: HYDROcodone/Acetaminophen 10/325 mg Tablet PO PRN (12:56)
== END 2022-04-03 15:00 | disposition home or self-care (01) | DRG 470 ==
LOC: SDC 05:38 → SJJU 10:17 → OBSVTOIN 04-03 05:21
PROVIDERS: ADMIT Orthopaedic Surgery; ATTEND Orthopaedic Surgery
PROC: 0SRD0J9 Replacement of Left Knee Joint with Synthetic Substitute, Cemented, Open Approach (ICD-10-PCS; principal; 2022-04-03)
DX: M17.12 Unilateral primary osteoarthritis, left knee (principal); I10 Essential (primary) hypertension; E11.9 Type 2 diabetes mellitus without complications; J42 Unspecified chronic bronchitis; Z20.822 Contact with and (suspected) exposure to COVID-19; Z79.899 Other long term (current) drug therapy; Z98.890 Other specified postprocedural states
CPT/HCPCS: 36415; 36416; 80048; 81003; 83036; 85025; 85027; 85610; 86850; 86900; 86901; 87081; 96374; 96375; 96376; A4306; C1713; C1776; G0378; J1100; J1815; J1885; J2250; J2405; J2704; J2795; J3010; J3370; J3490; J7050; S0020; U0002

== ENCOUNTER 2022-10-08 10:03 | Outpatient (CLI) | payer MEDICARE | END 2022-10-08 10:04 | disposition home or self-care (01) | LOC: SCSMRI 10:03 | PROVIDERS: ATTEND Orthopaedic Surgery | DX: M54.50 Low back pain, unspecified (principal); M25.561 Pain in right knee; M40.46 Postural lordosis, lumbar region; M47.816 Spondylosis without myelopathy or radiculopathy, lumbar region; Z96.652 Presence of left artificial knee joint | CPT/HCPCS: 72148 ==

== ENCOUNTER 2024-02-14 13:34 | Inpatient (IN) | payer MEDICARE, OTHER ==
[~2024-02-14 13:34] MED LIST: Iopamidol-370 76% 500 ML MDV (1 ML CHARGE) ONE
[2024-02-14] MEDS ORDERED: Morphine 4 MG/ML VIAL ONE ×2 (14:52→16:21)
[2024-02-14 15:04] LABS: #Basophils 0.03 10x3/uL (0.0-0.2); %Basophils 0.3 % (0.0-1.0); %Eosinophils 0.5 % (0.0-10.0); %Lymphocytes 12.3 % (21.0-51.0); %Monocytes 4.6 % (0.0-10.0); %Neutrophils 81.5 % (42.0-75.0); Hematocrit 35.8 % (36.0-47.0); Hemoglobin 12.1 g/dL (12.0-16.0); Mean Corpuscular HGB CONC 33.8 g/dL (32.0-36.0); Mean Corpuscular Hemoglobin 30.1 pg (27.0-31.0); Mean Corpuscular Volume 89.1 fL (78.0-98.0); Mean Platelet Volume 9.5 fL (7.4-10.4); Platelet Count 230 10x3/uL (130-400); RBC Distribution Width 12.8 % (11.5-14.5); Red Blood Cell (RBC) Count 4.02 mill/uL (4.20-5.40)
[2024-02-14 15:25] LABS: ALT (SGPT) 23 U/L (8-55); AST (SGOT) 44 U/L (5-34); Albumin 3.9 g/dL (3.4-4.8); Alkaline Phosphatase 55 U/L (40-110); Anion Gap 13 mmol/L (10-20); BUN (Urea Nitrogen) 14 mg/dL (9.8-20.1); Bilirubin, Total 0.6 mg/dL (0.2-1.2); Calc. Creatinine Clearance 0 mL/min (70-130); Calcium 8.5 mg/dL (7.8-10.44); Carbon Dioxide 20 mmol/L (23-31); Chloride 108 mmol/L (98-107); Estimated GFR 88; Globulin 2.7 g/dL (2.4-3.5); Glucose 129 mg/dL (83-110); Potassium 3.6 mmol/L (3.5-5.1); Protein, Total 6.6 g/dL (5.8-8.1); Sodium 137 mmol/L (136-145)
[2024-02-14] MEDS ORDERED: Lorazepam 2 MG/ML VIAL ONE (16:21)
[2024-02-14] MEDS ORDERED: Dextrose 5% in Water 1,000 ML IV PRN (17:07)
[2024-02-14] MEDS ORDERED: Glucagon 1 MG/ML KIT IM PRN (17:07)
[2024-02-14] MEDS ORDERED: Insulin Lispro 100 UNIT/ML 10 ML VIAL SC PRN (17:07)
[2024-02-14] MEDS ORDERED: Dextrose 50% Abboject 50 ML SYRINGE SLOW IVP PRN (17:07)
[2024-02-14] MEDS ORDERED: Ipratropium/Albuterol 3 ML NEB NEB PRN (17:07)
[2024-02-14] MEDS ORDERED: traMADol HCl 50 MG TAB PO PRN (17:10)
[2024-02-14 19:58] VITALS: BMI 26.6
[2024-02-14] MEDS: Famotidine/PF 20 mg/2ml Vial SLOW IVP SCH (20:50)
[2024-02-14] MEDS: Rosuvastatin 10 MG TAB PO SCH (20:50)
[2024-02-14] MEDS: traMADol HCl 50 MG TAB PO SCH (20:51)
[2024-02-14] MEDS: Ketorolac Tromethamine 30 MG (1 mL) VIAL IVP SCH ×2 (20:51→20:54)
[2024-02-14] MEDS: Morphine 2 MG/ML VIAL SLOW IVP PRN (20:54)
[2024-02-14] MEDS: Acetaminophen 500 MG TAB PO SCH (20:57)
[2024-02-14] MEDS: Senokot S 8.6-50 MG TAB PO SCH (22:07)
[2024-02-15 04:50] LABS: #Basophils Less than 0.03 10x3/uL (0.0-0.2); %Basophils 0.2 % (0.0-1.0); %Eosinophils 0.6 % (0.0-10.0); %Lymphocytes 30.5 % (21.0-51.0); %Monocytes 5.6 % (0.0-10.0); %Neutrophils 62.7 % (42.0-75.0); Hematocrit 28.8 % (36.0-47.0); Hemoglobin 9.8 g/dL (12.0-16.0); Mean Corpuscular Hemoglobin 30.3 pg (27.0-31.0); Mean Corpuscular Volume 89.2 fL (78.0-98.0); Mean Platelet Volume 9.7 fL (7.4-10.4); Platelet Count 167 10x3/uL (130-400); Red Blood Cell (RBC) Count 3.23 mill/uL (4.20-5.40)
[2024-02-15 05:05] LABS: Anion Gap 11 mmol/L (10-20); BUN (Urea Nitrogen) 16 mg/dL (9.8-20.1); Calc. Creatinine Clearance 75 mL/min (70-130); Calcium 7.9 mg/dL (7.8-10.44); Carbon Dioxide 23 mmol/L (23-31); Chloride 106 mmol/L (98-107); Estimated GFR 88; Glucose 118 mg/dL (83-110); Potassium 3.8 mmol/L (3.5-5.1); Sodium 136 mmol/L (136-145)
[2024-02-15] MEDS: Lidocaine 4% Patch TD SCH (09:10)
[2024-02-15] MEDS: Methocarbamol 500 MG TAB PO PRN (09:11)
[2024-02-15] MEDS: Polyethylene Glycol 3350 17 GM Packet PO SCH (12:41)
[2024-02-15] MEDS: Ondansetron ODT 4 MG TAB PO PRN (13:59)
[2024-02-15] MEDS: Transdermal Patch Removal TOP SCH (20:51)
[2024-02-16 06:23] LABS: Hematocrit 28.7 % (36.0-47.0); Hemoglobin 9.9 g/dL (12.0-16.0)
[2024-02-16] MEDS: Scopolamine 1 mg/72 hour Patch TD SCH (08:23)
[2024-02-16] MEDS: Enoxaparin 40 MG (0.4 mL) SYRINGE SC SCH (08:26)
[2024-02-16] MEDS: Cholecalciferol (Vitamin D3) 400 UNITS TAB PO SCH (13:59)
[2024-02-16] MEDS: Ibuprofen 600 MG TAB PO PRN (14:01)
[2024-02-17] MEDS: Cholecalciferol (Vitamin D3) 400 UNITS TAB PO SCH (09:29)
[2024-02-17] MEDS: Famotidine 20 MG TAB PO SCH (09:29)
[2024-02-17 13:14] VITALS: BP 128/83; TEMP 98
[2024-02-19] MEDS ORDERED: Scopolamine 1 mg/72 hour Patch TD SCH (09:00)
== END 2024-02-17 16:38 | DRG 184 ==
LOC: ERS 13:34 → SURG B 16:18
PROVIDERS: ADMIT Specialist; ATTEND Specialist
DX: S22.41XA Multiple fractures of ribs, right side, initial encounter for closed fracture (principal); S32.10XA Unspecified fracture of sacrum, initial encounter for closed fracture; S32.592A Other specified fracture of left pubis, initial encounter for closed fracture; I10 Essential (primary) hypertension; E11.9 Type 2 diabetes mellitus without complications; Z87.891 Personal history of nicotine dependence; V89.2XXA Person injured in unspecified motor-vehicle accident, traffic, initial encounter; Y93.I9 Activity, other involving external motion; Y92.89 Other specified places as the place of occurrence of the external cause; Z79.899 Other long term (current) drug therapy; Z79.85 Long-term (current) use of injectable non-insulin antidiabetic drugs; Z79.84 Long term (current) use of oral hypoglycemic drugs; Z79.82 Long term (current) use of aspirin
CPT/HCPCS: 36415; 36416; 70450; 71045; 71260; 72125; 72170; 72190; 74177; 80048; 80053; 82306; 85014; 85018; 85025; 86850; 86900; 86901; 96374; 96375; 96376; G0390; J1650; J1885; J2060; J2272; J3490; Q0162; Q9967